=== PATIENT | male | born 1960 | race African-American/Black ===

== ENCOUNTER 2021-08-07 12:57 | Emergency (ER) | payer OTHER | END 2021-08-07 13:53 | disposition home or self-care (01) | LOC: VM.ED 12:57 | DX: S46.911A Strain of unspecified muscle, fascia and tendon at shoulder and upper arm level, right arm, initial encounter (principal); M54.50 Low back pain, unspecified; M54.2 Cervicalgia; V89.2XXA Person injured in unspecified motor-vehicle accident, traffic, initial encounter; Y92.410 Unspecified street and highway as the place of occurrence of the external cause | CPT/HCPCS: 99283 ==